=== PATIENT | male | born 1985 | race Hispanic/Latino ===

== ENCOUNTER 2018-10-28 14:32 | Emergency (ER) | payer MEDICAID, OTHER ==
[2018-10-28] MEDS ORDERED: IBUPROFEN 400 MG TABLET ONE (14:48)
== END 2018-10-28 16:07 | disposition home or self-care (01) ==
LOC: EDH 14:32
DX: S60.032A Contusion of left middle finger without damage to nail, initial encounter (principal); Y00.XXXA Assault by blunt object, initial encounter; Y93.89 Activity, other specified; Y92.89 Other specified places as the place of occurrence of the external cause; Y99.8 Other external cause status
CPT/HCPCS: 73130

== ENCOUNTER 2021-02-09 11:58 | Emergency (ER) | payer OTHER ==
[~2021-02-09] VITALS: Ht 182.9 cm; Wt 127.0 kg
[2021-02-09] MEDS ORDERED: KETOROLAC 30MG VIAL (30MG/ML) IM ONE (12:30)
[2021-02-09] MEDS ORDERED: IBUP-2070 PO (13:46)
[2021-02-09] MEDS ORDERED: ACET1TAB25 PO (13:46)
[2021-02-09 14:24] VITALS: BP 132/76
== END 2021-02-09 14:26 | disposition home or self-care (01) ==
LOC: EDH 11:58
DX: S82.301A Unspecified fracture of lower end of right tibia, initial encounter for closed fracture (principal); F31.9 Bipolar disorder, unspecified; F41.9 Anxiety disorder, unspecified; Z79.1 Long term (current) use of non-steroidal anti-inflammatories (NSAID); X50.1XXA Overexertion from prolonged static or awkward postures, initial encounter; Y93.89 Activity, other specified; Y92.89 Other specified places as the place of occurrence of the external cause; Y99.8 Other external cause status
CPT/HCPCS: 29515; 73600; 96372; 99283; J1885

== ENCOUNTER 2025-05-01 05:22 | Emergency (ER) | payer SELFPAY ==
[~2025-05-01] VITALS: Ht 182.9 cm; Wt 104.3 kg
--- NOTE | 2025-05-01 05:24 | NUR ---
UA CUP PROVIDED
--- NOTE | 2025-05-01 05:27 | NUR ---
REPORT JR BORRERO
[2025-05-01 05:49] LABS: APPEARANCE,URINE CLEAR (CLEAR); GLUCOSE, URINE (UA) NEGATIVE (NEGATIVE); IMMATURE GRANULOCYTE ABSOLUTE 0.08 K/uL (0-1); LEUKOCYTE ESTERASE ,URINE NEGATIVE Leu/uL (NEGATIVE); NITRATE,URINE NEGATIVE (NEGATIVE); NUCLEATED RED BLOOD CELLS 0.0 % (0.0-0.19); OCCULT BLOOD,URINE NEGATIVE (NEGATIVE); PLATELET COUNT (AUTO) 305 K/uL (130-400); RED BLOOD CELL COUNT(AUTO) 4.89 MIL/uL (4.50-6.20); RED CELL DISTRIBUTION WIDTH 13.5 % (11.0-15.5); WHITE BLOOD COUNT (AUTO) 13.5 K/uL (4.8-10.8)
[2025-05-01 06:03] LABS: ADD UA MICROSCOPIC YES
[2025-05-01 06:07] LABS: CREATININE 0.9 mg/dL (0.5-1.3); GLOMERULAR FILTR. RATE CALC 110.0 mL/min (>90); GLUCOSE,RANDOM 119.0 mg/dL (70-105); SODIUM SERUM 139.0 mmol/L (136-145); UREA NITROGEN, BLOOD 13.0 mg/dL (7-18)
--- NOTE | 2025-05-01 06:38 | ERN ---
ED Note History of Present Illness Stated Complaint: ABD PAIN, VOMITING Chief Complaint: Abdominal Pain Time Seen by MD: 05:36 Dictation: This is a 40-year-old male who presented to the emergency room with complaints of abdominal pain associated with some nausea. This has been going on for the past 3-4 days he also reports some emesis. Most of it is the gastric contents. No hematemesis or melena. No fever chills or rigors. Most of the symptoms happen mostly at night. Temperature 98.4 pulse 58 respirations 20 blood pressure 134/79 with a pulse oximetry of 100% on room air His other medical problems include anxiety, bipolar depression, marijuana use and tobacco abuse Allergies: Coded Allergies: No Known Allergies (Unverified Allergy, Unknown, 10/28/18) Home Meds Active Scripts Acetaminophen with Codeine (Acetaminophen-Cod #3 Tablet) 1 Each Tablet, 1 EACH PO TID for tibial fx for 5 Days, #15 TAB Prov:SNEHAL MEDRANO INTERVENTIONAL PAIN PHYSICIAN 02/09/21 Ibuprofen (Ibuprofen) 600 Mg Tablet, 600 MG PO TID PRN for pain for 5 Days, #15 TAB Prov:SNEHAL MEDRANO INTERVENTIONAL PAIN PHYSICIAN 02/09/21 Past Medical History Past Medical History: Anxiety, Bipolar, Depression, Other Additional Past Medical Hx: INSOMNIA Surgical History: Other Surgical History Other: RT LRG, LEFT HAND Social History: Smokers, Drugs, ETOH RN Note Reviewed/Agreed w/PFSH: Yes Review of System Dictation Constitutional: Negative for fever,chills, and weight loss Eyes: Negative for injury, pain,redness, and discharge ENT: Negative for injury,pain or swelling Cardiovascular: Negative for chest pain, palpitations, and edema Respiratory: Negative for shortness of breath, cough, and wheezing, Abdomen/GI: Positive for abdominal pain, nausea, vomiting, denied diarrhea, and constipation Back: Negative for injury and pain : Negative for injury, bleeding and discharge MS/Extremity: Negative for injury and deformity Skin: Negative for rash, and discoloration Neuro: Negative for headache, weakness, numbness, tingling, and seizure Psych: Negative for suicide ideation, homicidal ideation, and hallucinations Initial Vital Sign VS Vital Signs Date Time Temp Pulse Resp B/P (MAP) Pulse Ox O2 Delivery O2 Flow Rate FiO2 05/01/25 05:23 98.4 58 20 134/79 100 Room Air 05/01/25 05:40 0 21 Physical Exam Dictation General: awake, alert, NAD Head/Face: Normocephalic, atraumatic Eyes: PERRL, EOMI, vision at baseline ENT: oral cavity clear, TMs clear, no signs of infection Neck: Trachea midline, supple, no nuchal rigidity Cardiovascular: RRR, normal S1/S2, No MRGs, no JVD Respiratory: CTAB, no respiratory distress, No rales or wheezes Abdomen: Soft, non-tender, non-distended, normal bowel sounds, no guarding or rebound. Skin: Warm, dry, normal turgor, no rash MS/Extremity: Pulses equal, no cyanosis, neurovascular intact, FROM Neuro: COAx4, GCS 15, strength 5/5, CN 2-12 intact, normal cerebellar exam, normal gait, Psych: Normal behavior, mood, and affect normal Extremities-trace edema without any palpable cords, Homans sign is negative Results (Laboratory/Radiology) Laboratory/Radiology Laboratory Tests Test 05/01/25 05:37 White Blood Count 13.5 K/uL (4.8-10.8) H Red Blood Count 4.89 MIL/uL (4.50-6.20) Hemoglobin 15.3 g/dL (14.0-18.0) Hematocrit 46.0 % (42-54) Mean Corpuscular Volume 94.1 fL (79-99) Mean Corpuscular Hemoglobin 31.3 pg (27.0-33.0) Mean Corpuscular Hemoglobin Concent 33.3 g/dL (32.0-36.0) Red Cell Distribution Width 13.5 % (11.0-15.5) Platelet Count 305 K/uL (130-400) Mean Platelet Volume 8.3 fL (7.5-10.5) Immature Granulocyte % (Auto) 0.6 % (0-1) Neutrophils (%) (Auto) 81.6 % (40.0-77.0) H Lymphocytes (%) (Auto) 10.6 % (21.0-51.0) L Monocytes (%) (Auto) 5.8 % (3.0-13.0) Eosinophils (%) (Auto) 1.3 % (0.0-8.0) Basophils (%) (Auto) 0.1 % (0.0-5.0) Neutrophils # (Auto) 11.0 K/uL (1.8-7.7) H Lymphocytes # (Auto) 1.4 K/uL (1.0-4.8) Monocytes # (Auto) 0.8 K/uL (0.1-1.0) Eosinophils # (Auto) 0.18 K/uL (0.00-0.70) Basophils # (Auto) 0.02 K/uL (0.00-0.20) Absolute Immature Granulocyte (auto 0.08 K/uL (0-1) Nucleated Red Blood Cells 0.0 % (0.0-0.19) Urine Color YELLOW (YELLOW) Urine Appearance CLEAR (CLEAR) Urine pH 6.0 (5.0-8.0) Urine Specific [place] 1.032 (1.001-1.031) Urine Protein 10 mg/dL (NEGATIVE) H Urine Glucose (UA) NEGATIVE mg/dL (NEGATIVE) Urine Ketones 5 mg/dL (NEGATIVE) H Urine Occult Blood NEGATIVE (NEGATIVE) Urine Nitrate NEGATIVE (NEGATIVE) Urine Bilirubin NEGATIVE mg/dL (NEGATIVE) Urine Urobilinogen 0.2 mg/dL (0.2-1.0) Urine Leukocyte Esterase NEGATIVE Brandyn/uL Urine RBC 2-5 /HPF (0-1) H Urine WBC 2-5 /HPF (0-1) H Urine Bacteria None /HPF (None Seen) Sodium Level 139 mmol/L (136-145) Potassium Level 3.5 mmol/L (3.5-5.1) Chloride Level 104 mmol/L (101-111) Carbon Dioxide Level 25 mmol/L (21-32) Blood Urea Nitrogen 13 mg/dL (7-18) Creatinine 0.9 mg/dL (0.5-1.3) Glomerular Filtration Rate Calc 110 mL/min (>90) Random Glucose 119 mg/dL (70-105) H Total Calcium 8.6 mg/dL (8.5-10.1) Lipase 28 U/L (16-77) Labs Reviewed?: Yes ED Course ED Course Orders Procedure Category Date Status Time Vital Signs Per CPOE 05/01/25 Transmitted Routine 05:31 Saline Lock Iv CPOE 05/01/25 Transmitted 05:31 Cbc With Differential LAB 05/01/25 Complete 05:31 Lipase LAB 05/01/25 Complete 05:31 Urinalysis Profile LAB 05/01/25 Complete 05:31 Basic Metabolic Panel LAB 05/01/25 Complete 05:31 Us Abdominal Ruq\Ltd US 05/01/25 Taken 06:34 Ondansetron 4mg Inj PHA 05/01/25 Complete (Zofran 4mg Inj) 07:00 Ketorolac PHA 05/01/25 Complete Tromethamine 30mg/Ml 07:00 Famotidine 20mg Tab PHA 05/01/25 Complete (Pepcid 20mg Tab) 07:00 Current Medications Medications (Trade) Dose Ordered Sig/Carmella Route PRN Reason Start Time Stop Time Status Last Admin Dose Admin Famotidine (Pepcid 20mg Tab) 20 mg ONCE ONCE PO 05/01/25 07:00 05/01/25 07:01 DC 05/01/25 06:48 Ketorolac Tromethamine (toRADol) 30 mg ONCE ONCE IVP 05/01/25 07:00 05/01/25 07:01 DC 05/01/25 06:48 Ondansetron HCl (zoFRAN 4MG INJ) 4 mg ONCE ONCE IVP 05/01/25 07:00 05/01/25 07:01 DC 05/01/25 06:48 Vital Signs Date Time Temp Pulse Resp B/P (MAP) Pulse Ox O2 Delivery O2 Flow Rate FiO2 05/01/25 05:40 98.2 64 18 120/79 96 Room Air* 0 21 05/01/25 05:23 98.4 58 20 134/79 100 Room Air Medical Decision Making MDM Differential diagnosis-Gastritis, esophagitis, gastroesophageal reflux disease, acute cholecystitis, peptic ulcer disease, gastroenteritis, colitis, constipation, pancreatitis, marijuana hyperemesis syndrome This is a 40-year-old male who presented to the emergency room with complaints of abdominal pain associated with some nausea. This has been going on for the past 3-4 days he also reports some emesis. Most of it is the gastric contents. No hematemesis or melena. No fever chills or rigors. Most of the symptoms happen mostly at night. Temperature 98.4 pulse 58 respirations 20 blood pressure 134/79 with a pulse oximetry of 100% on room air His other medical problems include anxiety, bipolar depression, marijuana use and tobacco abuse 6:15 a.m. labs reviewed CBC showed a white count of 13.5. BNP 7 is with a normal limits urinalysis is unremarkable. Lipase is 28 Ultrasound of the abdomen is also pending Symptomatic treatment with a antiemetics, pain medicine and H2 danna given. Care will be transitioned to oncoming physician at shift change at 7:00 a.m. Patient handed off at shift change pending lab results, patient was reassessed vital signs were all stable no tenderness to palpation on exam, vital signs stable no fever, lab results stable with mild leukocytosis, labs for electrolytes were normal and urine normal no CT scan is indicated at this time ultrasound shows contracted gallbladder and appropriate hepatic blood flow, patient is stable for discharge treating symptomatically and advised to return if worse in any way. DX & DISP Disposition: Discharge Departure Impression: Primary Impression: Acute gastritis Condition: Stable Scripts Ondansetron (Ondansetron Odt) 4 Mg Tab.rapdis 4 MG PO BID for vomiting for 5 Days, #10 TAB Prov: MAUREEN ZHU MD 05/01/25 Referrals: NONE (PCP) HARVEY BLACK MD May 01, 2025 06:38 MAUREEN ZHU MD May 01, 2025 08:10
[2025-05-01] MEDS: FAMOTIDINE 20MG TAB PO ONE (06:48)
[2025-05-01 08:15] VITALS: BP 95/63; PULSE 61; RESP 18; TEMP 97.3; O2SAT 99
--- NOTE | 2025-05-01 09:19 | HMCIMG ---
EXAM: US Abdomen, Right Upper Quadrant, Limited. CLINICAL HISTORY: abdominal pain and nausea. TECHNIQUE: Right upper quadrant sonography performed with image documentation. COMPARISON: None provided. FINDINGS: LIVER: Enlarged in size, measures 19 cm with normal echogenicity. No mass. GALLBLADDER: The gallbladder appears normal. No gallbladder wall thickening seen,0.3 cm. No gallstones are evident. COMMON BILE DUCT: Within normal limits in size, 0.5 cm.Intrahepatic bile ducts however appear to be dilated PANCREAS: The visualized pancreas appears within normal limits. The distal pancreas is obscured by bowel gas. RIGHT KIDNEY: Unremarkable. Normal renal contours. No renal mass or calculus. No hydronephrosis. IMPRESSION: Mild hepatomegaly. Intrahepatic bile ducts are dilated. Consider CT or MRCP /Faheem
== END 2025-05-01 08:46 | disposition home or self-care (01) ==
LOC: EDH 05:22
DX: K29.00 Acute gastritis without bleeding (principal); F17.200 Nicotine dependence, unspecified, uncomplicated; F31.9 Bipolar disorder, unspecified; Z79.891 Long term (current) use of opiate analgesic
CPT/HCPCS: 99285; 96374; 76705; 96375; 80048; 83690; 85025; 81001; 36415; J1885; J2405